=== PATIENT | female | born 1985 | race Caucasian/White ===

== ENCOUNTER 2023-07-30 10:59 | Emergency (ER) | payer OTHER, SELFPAY ==
[2023-07-30 11:00] VITALS: BP 176/102
[2023-07-30 11:07] VITALS: BMI 28.2
--- NOTE | 2023-07-30 11:19 | ED.GENMED ---
History of Present Illness
<Marta Felix PA-C - Last Filed: 07/30/23 15:46>
General
Chief Complaint: Breast Problem
Source: patient
Exam Limitations: none
Time Seen by Provider: 07/30/23 11:03
Nursing documentation reviewed up to this point in time: agreed with
Travel History
Have you had any contact with someone who has COVID-19?: No
Do you have any symptoms of coronavirus? Fever > 100 degrees, chills, cough, shortness of breath, sore throat, loss of taste or smell, muscle aches, or headache?: No
History of Present Illness
History of Present Illness:
This is a 37-year-old female with a past medical history of mastitis presenting emergency department today with right breast tenderness and redness. Patient states that this started 2 days ago and it started with just some minor pain in her
right breast and then she started to develop a low-grade fever. Patient then states that her fever got to a Tmax of 101. Patient manage her pain and fevers with Tylenol Motrin. Patient also states that she has had bodyaches and headaches on and
off since his surgery. Patient states that this feels very similar to when she has had mastitis in the past except she has not been breast-feeding. Patient denies discharge from her nipples. Patient states that she does have body piercings in the
area but states that this was done many years ago. Patient does have a Mirena IUD in place and states her last menstrual period was July 20. Patient is no family history of breast cancer. Patient denies chest pain, shortness of breath, nausea or
vomiting.
Past History
<Marta Felix PA-C - Last Filed: 07/30/23 15:46>
Past History
ED Past Medical History: Other (2 vaginal deliveries uncomplicated. )
Social History
Tobacco: Non-smoker
Alcohol: Occasional
Drug: None
Personal:
Living: with family
Employment: Employed
Review of Systems
<Marta Felix PA-C - Last Filed: 07/30/23 15:46>
Review of Systems
All Other Systems: ROS reviewed and negative except as documented in HPI and ROS
Phy Exam
<Marta Felix PA-C - Last Filed: 07/30/23 15:46>
Physical Exam
Physical Exam:
General: Patient is well appearing and in no acute distress; non-toxic
Skin: Please see breast exam. No other rashes or lesions.
Head: Normocephalic, atraumatic
Eyes: Sclera non-icteric. EOMs intact. PERRLA.
Cardiac: Regular rate and rhythm, no murmurs.
Breast: There is an area of palpable fluctuance with overlying erythema in the upper outer quadrant of the right breast. There is no nipple discharge bilaterally, no discharge with palpation. There is bilateral nipple piercing in place. No nipple
retraction. No dimpling of the skin. Tender palpable lymph node in right axillary region. Left breast exam unremarkable.
Peripheral Vascular: No lower extremity swelling or edema
Pulm: Normal respiratory effort
Abdomen: No abdominal tenderness
Musculoskeletal:
Neuro: CN II-XII intact, no focal neurologic deficits.
Psychiatric: Appropriate mood and affect.
Course
<Marta Felix PA-C - Last Filed: 07/30/23 15:46>
Orders/Labs/Results
Orders:
Orders
07/30/23 11:19
CMP [Comprehensive Metabolic Panel] Urgent
Complete Blood Count/With Diff Urgent
07/30/23 11:46
US Breast Right Ltd [facility]DC Urgent
Reason for Exam: REDNESS FLUTUANCE UPPER OUTER R/O ABSCESS
Abnormal Lab Results
07/30/23
11:19
MPV 11.4 H fL
(7.4-10.4)
Absolute Neuts (auto) 9.1 H 10^3/uL
(1.4-6.5)
Absolute Lymphs (auto) 0.9 L 10^3/uL
(1.2-3.4)
Neutrophils % 85.2 H %
(42.2-75.2)
Lymphocytes % 8.3 L %
(20.5-51.1)
Glucose 146 H mg/dl
(70-99)
Total Bilirubin 1.6 H mg/dl
(0.2-1.3)
07/30/23 11:19
07/30/23 11:19
Vital Signs
Initial and Last Documented VS:
Initial Vital Signs
Temp Pulse Resp BP Pulse Ox
98.1 F 91 16 176/102 100
07/30/23 11:00 07/30/23 11:00 07/30/23 11:00 07/30/23 11:00 07/30/23 11:00
Last Documented Vital Signs
Temp Pulse Resp BP Pulse Ox
98.1 F 87 16 126/93 97
07/30/23 11:00 07/30/23 12:32 07/30/23 11:00 07/30/23 12:32 07/30/23 12:32
<Sabino Bella MD - Last Filed: 07/30/23 12:52>
Orders/Labs/Results
Orders:
Orders
07/30/23 11:19
CMP [Comprehensive Metabolic Panel] Urgent
Complete Blood Count/With Diff Urgent
07/30/23 11:46
US Breast Right Ltd WDC Urgent
Reason for Exam: REDNESS FLUTUANCE UPPER OUTER R/O ABSCESS
Abnormal Lab Results
07/30/23
11:19
MPV 11.4 H fL
(7.4-10.4)
Absolute Neuts (auto) 9.1 H 10^3/uL
(1.4-6.5)
Absolute Lymphs (auto) 0.9 L 10^3/uL
(1.2-3.4)
Neutrophils % 85.2 H %
(42.2-75.2)
Lymphocytes % 8.3 L %
(20.5-51.1)
Glucose 146 H mg/dl
(70-99)
Total Bilirubin 1.6 H mg/dl
(0.2-1.3)
07/30/23 11:19
07/30/23 11:19
Vital Signs
Initial and Last Documented VS:
Initial Vital Signs
Temp Pulse Resp BP Pulse Ox
98.1 F 91 16 176/102 100
07/30/23 11:00 07/30/23 11:00 07/30/23 11:00 07/30/23 11:00 07/30/23 11:00
Last Documented Vital Signs
Temp Pulse Resp BP Pulse Ox
98.1 F 87 16 126/93 97
07/30/23 11:00 07/30/23 12:32 07/30/23 11:00 07/30/23 12:32 07/30/23 12:32
Nirajlt;Marta Felix PA-C - Last Filed: 07/30/23 15:46>
MDM/Problems Addressed
Differential Diagnosis Includes:
Differentials include nonlactational mastitis, erysipelas, breast abscess, inflammatory breast cancer, idiopathic granulomatous mastitis
MDM/Problems Addressed:
Breast pain, swelling:
This is a 37 y/o female with a pmh of mastitis presenting emergency department today with right breast tenderness and redness for the past 2 days. Patient had a fever associated with this. Patient is not currently breast feeding, has not
breast-fed in around 2 years. Patient denies any discharge from the breast, a family history of breast cancer. CBC and CMP unremarkable. Ultrasound reveals edema inflammation in the soft tissues breast but no cysts or solid mass, no abscess
collection. Patient states that when she had a similar condition, Keflex is well for her in the past so we will send her home with a course of this. Return precautions discussed. Patient will call her OB today to schedule an appointment for
follow-up
Chronic conditions affecting care:
n/a
Acute Exacerbation and/or Progression of Chronic Illness:
n/a
<Marta Felix PA-C - Last Filed: 07/30/23 15:46>
*Pulse Oximetry
Patient hypoxic: no
*Critical Care Note
Total Time (30-74mins, 75-104mins- exclusive of procedures): Not Applicable
Data Reviewed
Review of Other/Old Records Reveals: Records (Reviewed ER physician documentation from 12/26/2022) and Discharge Summary (Discharge summary to [facility] to review)
Source: patient and records
Prescriptions/Medications Considered But Not Given:
Consider antibiotic that covers MRSA however patient has had no MRSA infections in the past
<Marta Felix PA-C - Last Filed: 07/30/23 15:46>
Patient Management
Escalation/DeEscalation of care consider admission/obs:
Admit not indicated
I discussed this case with my attending Dr. Bella.
ED Attending Note
<Marta Felix PA-C - Last Filed: 07/30/23 15:46>
-
Portions of this chart may have been created with voice recognition software.� Occasional wrong word or��sound alike� substitutions may have occurred due to the inherent limitations of voice recognition software.
<Sabino Bella MD - Last Filed: 07/30/23 12:52>
ED Attending Note
Patient seen and examined by attending physician: Yes
ED Attending Note:
Patient presents to ED secondary to 3-day history of right breast redness and pain, along with fever. Denies vomiting. Denies direct trauma. Patient has had similar symptoms in the past, secondary to mastitis which developed during
breast-feeding. However, patient has not breast-fed in over 2 years. Of note, patient does have metal ring in her right nipple since November 2022, which has not been a problem. Denies direct trauma. Denies discharge. There is no family history
of breast cancer. Patient does get monthly cycle, without any irregularities.
Physical Exam
General: no apparent distress, not acutely ill. afebrile
Head: nc/at. eomi
Neck: supple. no meningeal signs.
Abdomen: normal bowel sounds. not tender.
Neuro: alert and oriented. no focal neurological deficits
Skin: right breast: no discharge. mild erythema noted lateral to areola without sig. swelling/tenderness.
Psychiatric: well kept. interactive and cooperative
Extremities: no edema. no calf tenderness.
US report reviewed.
History and exam consistent with superficial cellulitis, without evidence of abscess. As patient has successfully taken Keflex in the past, will start short course of keflex, along with close f/u with her director family physician @ [facility] A copy of US
provided to patient at discharge.
Discharge Plan
Departure
Patient Disposition: Home (Routine Discharge)
Date of Disposition: 07/30/23
Time of Disposition: 12:32
Patient with high blood pressure during this ER visit?: Yes
Condition: Good
Discharge Problem:
Mastitis
Instructions: Mastalgia (DC), Cellulitis (Skin Infection), Adult (DC), BLOOD PRESSURE
Prescriptions:
New
cephalexin 500 mg capsule
500 mg PO QID 10 Days Qty: 40 0RF
No Action
ibuprofen 600 mg tablet
600 mg PO QID PRN (Reason: fever or pain) Qty: 20 0RF
Activity Restrictions/Additional Instructions:
Please remove your jewelry until infection heals. Please continue to take Tylenol and Motrin as needed for fever.
Keflex has been sent to your pharmacy. You can take one tablet 4 times daily for 10 days.
Please follow up with your OBGYN, call [facility] today.
We have also attached number for breast surgeon: Dr. Linda Rosales,
Interventions
Interventions:
*Risk Screen - Suicide Last Done: 07/30/23 11:07
*General Assessment Last Done: 07/30/23 11:07
*Neglect/Abuse Screening Last Done: 07/30/23 11:07
ED- Fall Risk Assessment Last Done: 07/30/23 12:45
*ED COVID-19 Vaccine History Last Done: 07/30/23 11:07
*Nursing Disposition Last Done: 07/30/23 12:45
ED-Skin Assessment Last Done: 07/30/23 11:11
Discharge Date and Time
Discharge Date/Time: 07/30/23 12:46
Print Language: LAO
[2023-07-30 11:33] LABS: % Basophils 0.4 % (0-2); % Eosinophils 0.8 % (0-6); % Immature Granulocytes 0.3 % (0-0.5); % Lymphocytes 8.3 % (20.5-51.1); % Neutrophils 85.2 % (42.2-75.2); Absolute Eosinophils 0.1 10^3/uL (0-0.7); Absolute Lymphocytes 0.9 10^3/uL (1.2-3.4); Absolute Monocytes 0.5 10^3/uL (0.1-0.6); Absolute Neutrophils 9.1 10^3/uL (1.4-6.5); Hemoglobin 13.4 g/dL (12.0-16.0); Mean Corp Hgb Conc. 33.5 g/dL (33.0-37.0); Mean Corpuscular Hgb 28.9 pg (27.0-31.0); Mean Corpuscular Volume 86.2 fL (81.0-99.0); Mean Platelet Volume 11.4 fL (7.4-10.4); Nucleated Red Blood Cells % 0 %; Platelet Count 200 10^3/uL (130-400); Red Blood Cell Count 4.64 10^6/uL (4.20-5.40); Red Cell Dist. Width 12.1 % (11.5-14.5); White Blood Cell Count 10.6 10^3/uL (4.8-10.8)
[2023-07-30 11:52] LABS: ALT (SGPT) 17 U/L (0-35); AST (SGOT) 21 U/L (14-36); Albumin 4.8 g/dl (3.5-5.0); Alkaline Phosphatase 61 U/L (38-126); Blood Urea Nitrogen 12 mg/dl (7-17); Calcium 9.8 mg/dl (8.4-10.2); Carbon Dioxide 24 mmol/L (22-30); Chloride 104 mmol/L (98-107); Estimated Creatinine Clearance 107 ml/min; Glucose 146 mg/dl (70-99); Potassium 3.8 mmol/L (3.5-5.1); Sodium 140 mmol/L (135-145); Total Bilirubin 1.6 mg/dl (0.2-1.3); Total Protein 7.6 g/dl (6.3-8.2); eGFR > 60.00
[2023-07-30 12:32] VITALS: BP 126/93
== END 2023-07-30 12:46 | disposition home or self-care (01) ==
LOC: EMR 10:59
PROVIDERS: Physician Assistant; EMERGENCY PHYSICIAN Emergency Medicine; FAMILY PHYSICIAN Family Medicine
DX: N61.0 Mastitis without abscess (principal); R51.9 Headache, unspecified; R03.0 Elevated blood-pressure reading, without diagnosis of hypertension; Z97.5 Presence of (intrauterine) contraceptive device; Z88.0 Allergy status to penicillin; Z88.2 Allergy status to sulfonamides
CPT/HCPCS: 99284; 76642; 80053; 85025